=== PATIENT | male | born 1970 | race Hispanic/Latino ===

== ENCOUNTER 2020-02-20 20:32 | Emergency (ER) | payer OTHER | END 2020-02-20 21:20 | disposition home or self-care (01) | LOC: EDH 20:32 | DX: U07.1 COVID-19 (principal); J20.8 Acute bronchitis due to other specified organisms | CPT/HCPCS: 36415; 99283; U0003 ==

== ENCOUNTER 2020-02-23 13:19 | Inpatient (IN) | payer OTHER, SELFPAY ==
[~2020-02-23] VITALS: Ht 175.3 cm; Wt 91.9 kg
[2020-02-23] MEDS ORDERED: CEFTRIAXONE SODIUM 2 GM VIAL ONE (13:58)
[2020-02-23] MEDS ORDERED: METHYLPREDNISOLONE SOD SUCC 40MG/ML 1ML ONE ×2 (13:58→21:12)
[2020-02-23] MEDS ORDERED: SODIUM CHLORIDE 0.9% 100 ML IV ONE (13:59)
[2020-02-23 14:02] LABS: BASOPHILS % (AUTO) 0.2 % (0.0-5.0); EOSINOPHILS % (AUTO) 0.1 % (0.0-8.0); HEMATOCRIT 43.3 % (42-54); LYMPHOCYTES % (AUTO) 9.1 % (21.0-51.0); MEAN CORPUSCULAR HEMOGLOBIN 32.8 pg (27.0-33.0); MEAN CORPUSCULAR HGB CONC 34.9 g/dL (32.0-36.0); MEAN CORPUSCULAR VOLUME 93.9 fL (79-99); MONOCYTES % (AUTO) 4.8 % (3.0-13.0); NEUTROPHILS % (AUTO) 84.6 % (40.0-77.0); PLATELET COUNT (AUTO) 230 K/uL (130-400); RED BLOOD CELL COUNT(AUTO) 4.61 MIL/uL (4.50-6.20); RED CELL DISTRIBUTION WIDTH 11.6 % (11.0-15.5); WHITE BLOOD COUNT (AUTO) 10.3 K/uL (4.8-10.8)
[2020-02-23 14:11] LABS: CARBON DIOXIDE 32 mmol/L (21-32); CHLORIDE 101 mmol/L (101-111); CREATININE 1.3 mg/dL (0.5-1.5); GLOMERULAR FILTR. RATE CALC 63 mL/min (>60); GLUCOSE,RANDOM 115 mg/dL (70-105); POTASSIUM 3.9 mmol/L (3.5-5.1); SODIUM SERUM 140 mmol/L (136-145); UREA NITROGEN, BLOOD 22 mg/dL (7-18)
[2020-02-23 14:13] LABS: INR 0.92 (0.85-1.15); PARTIAL THROMBOPLASTIN TIME 28.4 SEC (26.3-35.5)
[2020-02-23 14:16] LABS: ABG BASE EXCESS 1.5 mmol/L (-2.0-3.0); ABG HCO3 25.7 mmol/L (21.0-28.0); ABG OXYGEN SATURATION 79.4 % (95.0-99.0); ABG PCO2 39 mmHg (35-48)
[2020-02-23 14:23] LABS: ALANINE AMINOTRANSFERASE 36 U/L (12-78); ALBUMIN 3.4 g/dL (3.5-5.0); ASPARTATE AMINOTRANSFERASE 42 U/L (10-37); BILIRUBIN,TOTAL 0.5 mg/dL (0.2-1.0); CREATINE KINASE, TOTAL 186 U/L (21-232); MYOGLOBIN 66 ng/mL (10-92); TOTAL PROTEIN, SERUM 8.3 g/dL (6.0-8.3); TROPONIN I < 0.04 ng/mL (0.00-0.06)
[2020-02-23] MEDS: CEFTRIAXONE SODIUM 1 GM IVP SCH (15:15)
[2020-02-23] MEDS ORDERED: LACTULOSE 20 GM/30 ML UDCUP PO PRN (15:15)
[2020-02-23] MEDS ORDERED: ACETAMINOPHEN 325 MG TAB PO PRN ×2 (15:15)
[2020-02-23] MEDS ORDERED: ONDANSETRON HCL 4 MG/2 ML VIAL IV PRN (15:15)
[2020-02-23] MEDS ORDERED: ERGOCALCIFEROL (VITAMIN D2) 50,000 UNIT CAPSULE PO ONE (15:15)
[2020-02-23 16:24] LABS: APPEARANCE,URINE Clear (CLEAR); BILIRUBIN,URINE Negative (NEGATIVE); COLOR,URINE Dark Yellow (YELLOW); GLUCOSE, URINE (UA) Negative (NEGATIVE); KETONES,URINE Negative (NEGATIVE); LEUKOCYTE ESTERASE ,URINE Negative (NEGATIVE); NITRATE,URINE Negative (NEGATIVE); OCCULT BLOOD,URINE Negative (NEGATIVE); PH,URINE 5.5 (5.0-8.0); PROTEIN,URINE POS 1+ mg/dL (NEGATIVE)
[2020-02-23 16:33] LABS: RBC,URINE 0-1 /HPF (0-1)
[2020-02-23 16:34] LABS: BACTERIA,URINE Few /HPF (None Seen); MUCUS,URINE Few LPF (None Seen); SQUAMOUS EPITHELIAL CELL,UR Few /HPF (0-2)
[2020-02-23] MEDS ORDERED: ERGOCALCIFEROL (VITAMIN D2) 50,000 UNIT CAPSULE ONE (16:41)
[2020-02-23] MEDS ORDERED: IOHEXOL-350 75 ML VIAL IV ONE (18:48)
[2020-02-23] MEDS: FAMOTIDINE 20MG TAB 20 MG TAB PO SCH (21:00)
[2020-02-23] MEDS: ACETYLCYSTEINE 600 MG CAPSULE PO SCH (21:00)
[2020-02-23] MEDS: METHYLPREDNISOLONE SOD SUCC 40MG/ML 1ML IVP SCH (21:00)
[2020-02-23] MEDS: DOXYCYCLINE HYCLATE 100 MG TABLET PO SCH (21:00)
[2020-02-23] MEDS ORDERED: DOXYCYCLINE HYCLATE 100 MG TABLET PO ONE (21:13)
[2020-02-23] MEDS ORDERED: FAMOTIDINE 20MG TAB 20 MG TAB ONE (21:13)
[2020-02-24] MEDS: CEFTRIAXONE SODIUM 1 GM IVP SCH ×2 (03:15→15:15)
[2020-02-24 06:01] LABS: CRP QUANTITATIVE 50.6 mg/L (0.00-9.0)
[2020-02-24] MEDS ORDERED: ASCORBIC ACID 500 MG TAB ONE (08:06)
[2020-02-24] MEDS ORDERED: DOXYCYCLINE HYCLATE 100 MG TABLET PO ONE (08:06)
[2020-02-24] MEDS ORDERED: METHYLPREDNISOLONE SOD SUCC 40MG/ML 1ML ONE (08:06)
[2020-02-24] MEDS ORDERED: FAMOTIDINE 20MG TAB 20 MG TAB ONE (08:06)
[2020-02-24] MEDS ORDERED: ACETYLCYSTEINE 600 MG CAPSULE ONE (08:07)
[2020-02-24] MEDS ORDERED: ZINC SULFATE 220 CAPSULE ONE (08:07)
[2020-02-24] MEDS ORDERED: CEFTRIAXONE SODIUM 1 GM ONE (08:07)
[2020-02-24] MEDS ORDERED: ENOXAPARIN SODIUM 40 MG/0.4 ML SYRINGE SQ ONE (08:07)
[2020-02-24] MEDS: ENOXAPARIN SODIUM 40 MG/0.4 ML SYRINGE SQ SCH (09:00)
[2020-02-24] MEDS: FAMOTIDINE 20MG TAB 20 MG TAB PO SCH ×2 (09:00→20:43)
[2020-02-24] MEDS: METHYLPREDNISOLONE SOD SUCC 40MG/ML 1ML IVP SCH ×3 (09:00→21:14)
[2020-02-24] MEDS: DOXYCYCLINE HYCLATE 100 MG TABLET PO SCH ×2 (09:00→20:43)
[2020-02-24] MEDS: ASCORBIC ACID 500 MG TAB PO SCH (09:00)
[2020-02-24] MEDS: ACETYLCYSTEINE 600 MG CAPSULE PO SCH ×2 (09:00→20:43)
[2020-02-24] MEDS: ZINC SULFATE 220 CAPSULE PO SCH (12:00)
[2020-02-24] MEDS ORDERED: SODIUM CHLORIDE 0.9% 100 ML IV ONE (15:27)
--- NOTE | 2020-02-24 18:00 | NUR ---
Pt alert, came from ER with a NRB sat at 95%, pt showed no signs and symptoms of distress, A&Ox4, no skin issues, bed at lowest position, BSC at bedside, Vitals WNL, pt stated no pain
[2020-02-24 18:14] VITALS: BP 129/85
--- NOTE | 2020-02-24 18:47 | NUR ---
Pt alert, Zita discharge [place] Islander speaking pt, pt agreed to self isolate and follow-up with primary care provider in 3-4 weeks, pt understood discharge instructions, pt was weaned off 1L oxygen, room air sat of 96, walking without oxygen pt sat was 92-94%, MD Ovalle notified, DC order was placed, pt showed no signs and symptoms of distress,
[2020-02-24 20:00] VITALS: BP 142/93
--- NOTE | 2020-02-24 20:43 | NUR ---
MEDS SHIFT ASSESSMENT DONE, PLEASE REFER TO CHART. STILL CLAIMS OF SOB WITH EXERTION AND DRY COUGH. MAINTAINED ON 100% NON-REBREATHER FOR NOW. DUE MEDS ADMINISTERED, TOLERATED WELL. CALL LIGHT WITHIN REACH. WILL MONITOR PT. Addendum: 02/25/20 at 0000 by LILLIANA WASHINGTON RN RN Amended: Links added.
[2020-02-25 00:16] VITALS: BP 12/66
[2020-02-25] MEDS: CEFTRIAXONE SODIUM 1 GM IVP SCH ×3 (02:28→20:55)
--- NOTE | 2020-02-25 02:28 | NUR ---
MEDS PT STILL AWAKE AND CLAIMS OF INABILITY TO SLEEP. DUE MEDS ADMINISTERED, TOLERATED WELL. KEPT COMFORTABLE IN BED WITH HOB ELEVATED. KEPT ROOM TEMPERATURE COOL AND LIGHTS DIMMED. ENCOURAGED TO TRY TO RELAX. WILL MONITOR PT. CALL LIGHT WITHIN REACH.
[2020-02-25 04:23] VITALS: BP 116/66
[2020-02-25 04:51] LABS: BASOPHILS % (AUTO) 0.2 % (0.0-5.0); HEMATOCRIT 38.4 % (42-54); LYMPHOCYTES % (AUTO) 4.3 % (21.0-51.0); MEAN CORPUSCULAR HEMOGLOBIN 32.4 pg (27.0-33.0); MEAN CORPUSCULAR HGB CONC 34.4 g/dL (32.0-36.0); MEAN CORPUSCULAR VOLUME 94.1 fL (79-99); MONOCYTES % (AUTO) 3.5 % (3.0-13.0); NEUTROPHILS % (AUTO) 90.8 % (40.0-77.0); PLATELET COUNT (AUTO) 242 K/uL (130-400); RED BLOOD CELL COUNT(AUTO) 4.08 MIL/uL (4.50-6.20); RED CELL DISTRIBUTION WIDTH 11.4 % (11.0-15.5); WHITE BLOOD COUNT (AUTO) 13.1 K/uL (4.8-10.8)
[2020-02-25 05:04] LABS: CREATININE 1.3 mg/dL (0.5-1.5); CRP QUANTITATIVE 28.1 mg/L (0.00-9.0)
--- NOTE | 2020-02-25 06:20 | NUR ---
ROUNDS PT RESTING WELL. NO DISTRESS NOTED. NO CONCERNS VERBALIZED AT THIS TIME. KEPT RESTED AND COMFORTABLE. FOR MORE CARE.
[2020-02-25 08:00] VITALS: BP 134/80
[2020-02-25] MEDS ORDERED: POTASSIUM CHLORIDE 10% ELIXIR 20 MEQ/15 ML UDCUP PO PRN (10:00)
[2020-02-25] MEDS ORDERED: POTASSIUM CHLORIDE 20MEQ/100ML 100 ML IV PRN ×2 (10:00)
[2020-02-25] MEDS ORDERED: POTASSIUM CHLORIDE 20 MEQ ERTAB PO PRN (10:00)
[2020-02-25] MEDS: METHYLPREDNISOLONE SOD SUCC 40MG/ML 1ML IVP SCH ×3 (10:17→20:55)
[2020-02-25] MEDS: FAMOTIDINE 20MG TAB 20 MG TAB PO SCH ×2 (10:17→20:56)
[2020-02-25] MEDS: ASCORBIC ACID 500 MG TAB PO SCH (10:17)
[2020-02-25] MEDS: ACETYLCYSTEINE 600 MG CAPSULE PO SCH ×2 (10:17→20:56)
[2020-02-25] MEDS: DOXYCYCLINE HYCLATE 100 MG TABLET PO SCH ×2 (10:17→20:56)
[2020-02-25] MEDS: ENOXAPARIN SODIUM 40 MG/0.4 ML SYRINGE SQ SCH (10:18)
[2020-02-25] MEDS: ZINC SULFATE 220 CAPSULE PO SCH (11:28)
--- NOTE | 2020-02-25 11:45 | NUR ---
CONSENT FORM FOR CONVALESCENT PLASMA COMPLETED AND SIGNED BY PATIENT AND GIVEN TO CN TO TAKE TO LAB; WILL AWAIT FOR PLASMA TO BE AVAILABLE . PT LELIA UNDECIDED ABOUT WHETHER OR NOT TO RECEIVE PLASMA; I HAVE GIVEN HIM THE INFORMATION HAND OUT ON IT AND ANSWERED ALL HIS QUESTIONS; HE ATTEMPTED TO CALL HIS AND ASK HER OPINION ON RECEIVING IT BUT SHE DID NOT ANSWER PHONE; I DID TELL HIM THE PLASMA WOULD PROBABLY NOT BE AVAILABLE TILL TOMORROW SO IF THE CHANGES HIS MIND ON RECEIVING IT TO LET US KNOW IF HE DOES NOT WANT IT.
[2020-02-25 12:00] VITALS: BP 123/76
[2020-02-25 16:00] VITALS: BP 131/63
--- NOTE | 2020-02-25 18:08 | NUR ---
SHIFT SUMMARY: PT HAD SAT'S OF 98% ON NON REBREATHER SO I DECREASED HIM TO PARTIAL NON -BREATHER 15L 70% OXYGEN AND HE SATS 92%; PT SIT'S ON EDGE OF BED FREQUENTLY, AND LAYS PRONE AT TIMES IN BED; HE IS PENDING TO RECEIVE A UNIT OF CONVALESCANT PLASMA.
[2020-02-25 19:00] VITALS: BP 119/79
[2020-02-26] VITALS (7 sets, daily range): BP systolic 123–144; BP diastolic 74–93
[2020-02-26] MEDS ORDERED: SODIUM CHLORIDE 0.9% 250 ML IV ONE (03:42)
[2020-02-26 04:35] LABS: BASOPHILS % (AUTO) 0.1 % (0.0-5.0); HEMATOCRIT 39.7 % (42-54); LYMPHOCYTES % (AUTO) 5.2 % (21.0-51.0); MEAN CORPUSCULAR HEMOGLOBIN 32.1 pg (27.0-33.0); MEAN CORPUSCULAR HGB CONC 34.3 g/dL (32.0-36.0); MEAN CORPUSCULAR VOLUME 93.6 fL (79-99); MONOCYTES % (AUTO) 4.9 % (3.0-13.0); NEUTROPHILS % (AUTO) 88.4 % (40.0-77.0); PLATELET COUNT (AUTO) 283 K/uL (130-400); RED BLOOD CELL COUNT(AUTO) 4.24 MIL/uL (4.50-6.20); RED CELL DISTRIBUTION WIDTH 11.5 % (11.0-15.5); WHITE BLOOD COUNT (AUTO) 11.1 K/uL (4.8-10.8)
[2020-02-26 04:56] LABS: ALBUMIN 2.6 g/dL (3.5-5.0); BILIRUBIN,TOTAL 0.3 mg/dL (0.2-1.0); CREATININE 1.3 mg/dL (0.5-1.5); POTASSIUM 4.5 mmol/L (3.5-5.1); TOTAL PROTEIN, SERUM 7.1 g/dL (6.0-8.3)
--- NOTE | 2020-02-26 06:33 | NUR ---
plasma patient received 1 unit of convalescent plasma and tolerated well
[2020-02-26] MEDS: FAMOTIDINE 20MG TAB 20 MG TAB PO SCH ×2 (08:51→21:14)
[2020-02-26] MEDS: DOXYCYCLINE HYCLATE 100 MG TABLET PO SCH ×2 (08:51→21:13)
[2020-02-26] MEDS: ACETYLCYSTEINE 600 MG CAPSULE PO SCH ×2 (08:51→21:14)
[2020-02-26] MEDS: ENOXAPARIN SODIUM 40 MG/0.4 ML SYRINGE SQ SCH (08:51)
[2020-02-26] MEDS: ASCORBIC ACID 500 MG TAB PO SCH (08:51)
[2020-02-26] MEDS: CEFTRIAXONE SODIUM 1 GM IVP SCH ×2 (08:52→21:13)
[2020-02-26] MEDS: METHYLPREDNISOLONE SOD SUCC 40MG/ML 1ML IVP SCH ×3 (08:52→21:13)
[2020-02-26] MEDS: ZINC SULFATE 220 CAPSULE PO SCH (08:54)
--- NOTE | 2020-02-26 19:03 | NUR ---
[facility] CM unable to do IA at this time, called son on facesheet Ambrocio Reyes , left voice mail. Pending son to return call. Will reassess once pt more stable. CM to cont to follow up. Addendum: 02/26/20 at 1905 by RAJAT HOGAN LVN CM Amended: Links added.
[2020-02-27 03:50] VITALS: BP 125/84
[2020-02-27 05:40] LABS: BASOPHILS % (AUTO) 0.2 % (0.0-5.0); HEMATOCRIT 40.4 % (42-54); LYMPHOCYTES % (AUTO) 4.7 % (21.0-51.0); MEAN CORPUSCULAR HGB CONC 34.2 g/dL (32.0-36.0); MEAN CORPUSCULAR VOLUME 93.7 fL (79-99); MONOCYTES % (AUTO) 5.8 % (3.0-13.0); NEUTROPHILS % (AUTO) 86.5 % (40.0-77.0); PLATELET COUNT (AUTO) 293 K/uL (130-400); RED BLOOD CELL COUNT(AUTO) 4.31 MIL/uL (4.50-6.20); RED CELL DISTRIBUTION WIDTH 11.2 % (11.0-15.5); WHITE BLOOD COUNT (AUTO) 10.5 K/uL (4.8-10.8)
[2020-02-27 06:05] LABS: ALBUMIN 2.6 g/dL (3.5-5.0); BILIRUBIN,TOTAL 0.3 mg/dL (0.2-1.0); CREATININE 1.3 mg/dL (0.5-1.5); POTASSIUM 4.5 mmol/L (3.5-5.1); TOTAL PROTEIN, SERUM 6.8 g/dL (6.0-8.3)
[2020-02-27 08:00] VITALS: BP 117/95
[2020-02-27] MEDS: CEFTRIAXONE SODIUM 1 GM IVP SCH ×2 (08:23→21:28)
[2020-02-27] MEDS: ACETYLCYSTEINE 600 MG CAPSULE PO SCH ×2 (08:23→21:29)
[2020-02-27] MEDS: ASCORBIC ACID 500 MG TAB PO SCH (08:23)
[2020-02-27] MEDS: FAMOTIDINE 20MG TAB 20 MG TAB PO SCH ×2 (08:23→21:30)
[2020-02-27] MEDS: DOXYCYCLINE HYCLATE 100 MG TABLET PO SCH ×2 (08:23→21:29)
[2020-02-27] MEDS: ENOXAPARIN SODIUM 40 MG/0.4 ML SYRINGE SQ SCH (08:24)
[2020-02-27] MEDS: METHYLPREDNISOLONE SOD SUCC 40MG/ML 1ML IVP SCH ×3 (08:24→21:40)
[2020-02-27 11:00] VITALS: BP 136/83
[2020-02-27] MEDS: ZINC SULFATE 220 CAPSULE PO SCH (12:50)
[2020-02-27 16:00] VITALS: BP 122/79
[2020-02-27 20:00] VITALS: BP 133/82
[2020-02-27 23:53] VITALS: BP 128/83
[2020-02-28 04:00] VITALS: BP 133/84
[2020-02-28 04:22] LABS: BASOPHILS % (AUTO) 0.2 % (0.0-5.0); HEMATOCRIT 41.7 % (42-54); MEAN CORPUSCULAR HGB CONC 34.3 g/dL (32.0-36.0); MEAN CORPUSCULAR VOLUME 93.3 fL (79-99); MONOCYTES % (AUTO) 5.2 % (3.0-13.0); NEUTROPHILS % (AUTO) 87.8 % (40.0-77.0); PLATELET COUNT (AUTO) 292 K/uL (130-400); RED BLOOD CELL COUNT(AUTO) 4.47 MIL/uL (4.50-6.20); RED CELL DISTRIBUTION WIDTH 11.2 % (11.0-15.5); WHITE BLOOD COUNT (AUTO) 9.8 K/uL (4.8-10.8)
[2020-02-28 04:31] LABS: ALBUMIN 2.6 g/dL (3.5-5.0); BILIRUBIN,TOTAL 0.5 mg/dL (0.2-1.0); CREATININE 1.2 mg/dL (0.5-1.5); POTASSIUM 4.6 mmol/L (3.5-5.1); TOTAL PROTEIN, SERUM 6.9 g/dL (6.0-8.3)
[2020-02-28 08:48] VITALS: BP 114/74
[2020-02-28] MEDS: ASCORBIC ACID 500 MG TAB PO SCH (10:28)
[2020-02-28] MEDS: FAMOTIDINE 20MG TAB 20 MG TAB PO SCH ×2 (10:28→21:19)
[2020-02-28] MEDS: ACETYLCYSTEINE 600 MG CAPSULE PO SCH ×2 (10:29→21:19)
[2020-02-28] MEDS: DOXYCYCLINE HYCLATE 100 MG TABLET PO SCH ×2 (10:29→21:18)
[2020-02-28] MEDS: ENOXAPARIN SODIUM 40 MG/0.4 ML SYRINGE SQ SCH (10:29)
[2020-02-28] MEDS: METHYLPREDNISOLONE SOD SUCC 40MG/ML 1ML IVP SCH ×3 (10:29→21:18)
[2020-02-28] MEDS: CEFTRIAXONE SODIUM 1 GM IVP SCH ×2 (10:32→21:18)
[2020-02-28 11:00] VITALS: BP 117/83
[2020-02-28 15:00] VITALS: BP 113/81
[2020-02-28] MEDS: ZINC SULFATE 220 CAPSULE PO SCH (16:37)
[2020-02-28 21:53] VITALS: BP 125/55
[2020-02-29 00:48] VITALS: BP 138/94
[2020-02-29 04:17] VITALS: BP 132/75
[2020-02-29 05:34] LABS: BASOPHILS % (AUTO) 0.2 % (0.0-5.0); LYMPHOCYTES % (AUTO) 4.3 % (21.0-51.0); MEAN CORPUSCULAR HEMOGLOBIN 31.5 pg (27.0-33.0); MEAN CORPUSCULAR HGB CONC 33.9 g/dL (32.0-36.0); MONOCYTES % (AUTO) 4.2 % (3.0-13.0); NEUTROPHILS % (AUTO) 87.2 % (40.0-77.0); PLATELET COUNT (AUTO) 289 K/uL (130-400); RED BLOOD CELL COUNT(AUTO) 4.41 MIL/uL (4.50-6.20); RED CELL DISTRIBUTION WIDTH 11.4 % (11.0-15.5); WHITE BLOOD COUNT (AUTO) 8.7 K/uL (4.8-10.8)
[2020-02-29 05:39] LABS: CARBON DIOXIDE 28 mmol/L (21-32); CHLORIDE 104 mmol/L (101-111); CREATININE 1.2 mg/dL (0.5-1.5); GLOMERULAR FILTR. RATE CALC 69 mL/min (>60); GLUCOSE,RANDOM 182 mg/dL (70-105); POTASSIUM 4.8 mmol/L (3.5-5.1); SODIUM SERUM 137 mmol/L (136-145); UREA NITROGEN, BLOOD 32 mg/dL (7-18)
[2020-02-29 08:00] VITALS: BP 124/86
[2020-02-29] MEDS: ACETYLCYSTEINE 600 MG CAPSULE PO SCH ×2 (08:52→19:49)
[2020-02-29] MEDS: DOXYCYCLINE HYCLATE 100 MG TABLET PO SCH ×2 (08:52→19:49)
[2020-02-29] MEDS: FAMOTIDINE 20MG TAB 20 MG TAB PO SCH ×2 (08:52→19:49)
[2020-02-29] MEDS: METHYLPREDNISOLONE SOD SUCC 40MG/ML 1ML IVP SCH ×3 (08:52→19:49)
[2020-02-29] MEDS: ASCORBIC ACID 500 MG TAB PO SCH ×2 (08:52→19:49)
[2020-02-29] MEDS: CEFTRIAXONE SODIUM 1 GM IVP SCH ×2 (08:52→19:49)
[2020-02-29] MEDS: ENOXAPARIN SODIUM 40 MG/0.4 ML SYRINGE SQ SCH ×2 (08:55→19:50)
--- NOTE | 2020-02-29 09:33 | NUR ---
dag sprayer heart rate in the 30's. Telemetry called and reported patient's heart rate was in the 30's. Entered his room and he was asleep. Aroused without a problem. LAWN AND GARDEN TECHNICIAN was in to take V/S and heart rate was at 46. I assessed and went to bring morning medications to patient and he was sitting up on side of bed, color good, no SOB or distress noted. Retook HR=76, at this time. He stated that he just needed to get to moving and letting the circulation start. He also asked about if he would be seeing a doctor soon because he wanted to talk more about his prognosis and improvements. I did tell him that I will jasen a note of his request and will also let first shift nurse know when she arrives.
--- NOTE | 2020-02-29 09:52 | NUR ---
VALE Philip NP visited patient VALE Philip NP came to floor and I notified him about patient's request to see him for talk about discharge plans. Patient was seen and an order was put in for Respiratory Therapy to assess for home oxygen on 02/27/2020. A call was placed to Respiratory and they will see patient today. Patient also had his nonrebreather mask removed, by VALE Lafleur NP, to assess tolerance. Will follow up with a oxygen saturation level.
[2020-02-29] MEDS: ZINC SULFATE 220 CAPSULE PO SCH (11:55)
[2020-02-29 12:00] VITALS: BP 115/79
[2020-02-29 16:00] VITALS: BP 133/87
--- NOTE | 2020-02-29 19:27 | NUR ---
UNABLE TO ASSESS SW attempted to reach patient's family but was unsuccessful.
[2020-02-29 20:50] VITALS: BP 120/76
[2020-03-01 04:57] LABS: BASOPHILS % (AUTO) 0.2 % (0.0-5.0); HEMATOCRIT 43.9 % (42-54); LYMPHOCYTES % (AUTO) 4.4 % (21.0-51.0); MEAN CORPUSCULAR HEMOGLOBIN 32.5 pg (27.0-33.0); MEAN CORPUSCULAR HGB CONC 34.9 g/dL (32.0-36.0); MEAN CORPUSCULAR VOLUME 93.2 fL (79-99); MONOCYTES % (AUTO) 4.6 % (3.0-13.0); PLATELET COUNT (AUTO) 280 K/uL (130-400); RED BLOOD CELL COUNT(AUTO) 4.71 MIL/uL (4.50-6.20); RED CELL DISTRIBUTION WIDTH 11.3 % (11.0-15.5); WHITE BLOOD COUNT (AUTO) 9.3 K/uL (4.8-10.8)
[2020-03-01 05:30] LABS: CREATININE 1.1 mg/dL (0.5-1.5); CRP QUANTITATIVE 4.1 mg/L (0.00-9.0); POTASSIUM 4.8 mmol/L (3.5-5.1)
[2020-03-01 05:36] VITALS: BP 113/74
[2020-03-01 08:00] VITALS: BP 125/89
[2020-03-01] MEDS: DOXYCYCLINE HYCLATE 100 MG TABLET PO SCH (08:37)
[2020-03-01] MEDS: CEFTRIAXONE SODIUM 1 GM IVP SCH (08:37)
[2020-03-01] MEDS: FAMOTIDINE 20MG TAB 20 MG TAB PO SCH ×2 (08:37→19:57)
[2020-03-01] MEDS: ACETYLCYSTEINE 600 MG CAPSULE PO SCH ×2 (08:37→19:56)
[2020-03-01] MEDS: METHYLPREDNISOLONE SOD SUCC 40MG/ML 1ML IVP SCH ×3 (08:37→19:57)
[2020-03-01] MEDS: ZINC SULFATE 220 CAPSULE PO SCH (11:47)
[2020-03-01 12:00] VITALS: BP 130/71
--- NOTE | 2020-03-01 12:19 | NUR ---
IA- D/C PLANNING W PT- HOME WITH O2/CONCENTRATOR FROM [facility]. SPOKE TO PATIENT ON PHONE FOR IA. STATES HIS PHONE WAS DROPPED AND HAS TROUBLE RECEIVING CALLS, STATES LIVES WITH BRIE HIS FATHER, IS , CONFIRMED NUMBERS ON HIS FACE SHEET. STATES HE WAS LAID OFF FROM HIS JOB SECOND TO A WORK INJURY ON HIS FOOT- [facility] BUT WAS UNABLE TO AFFORD TO CONTINUE HIS INSURANCE. FOOT IS BETTER NOW- HE IS MOBILE & INDEPENDENT, DRIVES, NO DME. NO KNOWLEDGE OF ANY COMMUNITY RESOURCES- ADVISED HIM THAT WE WILL GIVE COMMUNITY RESOURCE PKG AND LEAVE IN CHART FOR DISCHARGE. SPOKE TO HIM ABOUT TRANSPORT TANK AND CONCENTRATOR FOR HOME. GOAL IS 3 LITRE. POSS D/C TODAY, ALREADY DISCUSSED GOAL WITH VALE MCKEON AND WITH JONNY RANGEL RN Addendum: 03/01/20 at 1230 by RUMA LIND RN CM Amended: Links added.
--- NOTE | 2020-03-01 12:53 | NUR ---
Cedrick COLLAZO, AYESHA, visited patient and placed him on a nasal cannula at 2 Liters per minute. His saturation after 20 minutes was 84-86%. His liters was increased to 4 liters per minute. After 30 minutes his oxygen saturation level=90%. The litigation assistant, Beata called and wanted me to give patient her phone number, since she could not reach him, and have him to call her in regards to discharge preparation. She did report that she had oxygen concentrators that was given by the state, so if patient required oxygen she could send home oxygen. He needs to be at 3 liters with a saturation of 90-91% to be able to be sent home with it. I will try to wean to 3 liters, but if his saturation level drop, I will increase back to 4 liters, until an improvement to try again.
--- NOTE | 2020-03-01 13:26 | NUR ---
Placed on 3 liters via nasal cannula Patient was placed on 3 liters via nasal cannula and oxygen saturation=88%. Some SOB noted, so increased back to 4 liters. Will continue to monitorand let 3pm nurse know to continue as well to see if can be weaned to 3 liters, successfully without and s/sx of SOB.
--- NOTE | 2020-03-01 14:19 | NUR ---
Oxygen Saturation Check I entered the patient's room and took oxygen saturation, while he was on 5 liters via nasal cannula and it =88-89%. Respiratory therapy was on the floor and I made aware about trying to wean patient and what Cedrick COLLAZO NP placed him on (2 liters via nasal cannula) this morning. Patient is now on 5 liters via nasal cannula, after oxygen saturation level wasat 88% on 4 liters. Respiratory therapist agreed to take up to 5 liters via nasal cannula.
--- NOTE | 2020-03-01 15:24 | NUR ---
RDSCREEN - LOS X 7 Pt admitted with positive COVID-19, ARF. Pt with regular diet order. No report of GI distress. Recent PO intake at 100%, called RN, unavailable. BG 187, Alb 2.6. Obesity class I. No pertinent medical history. Pt with Vitamin C, Zinc, NAC in place. Recommend 60mL ProMod QD RD to continue to monitor. Please notify as additional nutrition concerns arise. Thank you.
[2020-03-01 16:00] VITALS: BP 144/97
[2020-03-01 19:30] VITALS: BP 123/78
--- NOTE | 2020-03-01 22:17 | NUR ---
Pt was sitting in chair on side of his bed, pt stated he felt better, pt is now on nasal cannula 5L satuation at 90%,will bring oxygen to 6L, pt showed no signs and symptoms of distress, stated no pain, will continue to monitor pt
[2020-03-02] VITALS: BP 118/78
[2020-03-02 04:00] VITALS: BP 121/73
[2020-03-02 08:00] VITALS: BP 141/84
[2020-03-02] MEDS: METHYLPREDNISOLONE SOD SUCC 40MG/ML 1ML IVP SCH ×3 (08:57→21:11)
[2020-03-02] MEDS: ACETYLCYSTEINE 600 MG CAPSULE PO SCH ×2 (08:57→21:11)
[2020-03-02] MEDS: FAMOTIDINE 20MG TAB 20 MG TAB PO SCH ×2 (08:57→21:11)
[2020-03-02] MEDS: ASCORBIC ACID 500 MG TAB PO SCH (08:58)
[2020-03-02] MEDS: ENOXAPARIN SODIUM 40 MG/0.4 ML SYRINGE SQ SCH (08:58)
[2020-03-02 12:00] VITALS: BP 138/68
[2020-03-02] MEDS: ZINC SULFATE 220 CAPSULE PO SCH (12:11)
[2020-03-02 16:00] VITALS: BP 144/85
--- NOTE | 2020-03-02 17:07 | NUR ---
Pt alert, FINANCIAL SERVICES DIRECTOR AJ took weaned pt to 3L NC instead of 5L, pt oxygen saturation went from 91% to 87-88%, pt was placed back on 5L NC, pt showed no signs and symptoms of distress, stated no pain, will continue to monitor pt
[2020-03-02 19:30] VITALS: BP 133/81
[2020-03-03] VITALS: BP 126/79
--- NOTE | 2020-03-03 00:05 | NUR ---
Oxygen Saturation Checks lying, sitting, and walking without oxygen Patient was lying in bed ad I took oxygen saturation=93%, sitting oxygen saturation=90-91%, and walking in room without any oxygen=82-83%. He is currently on 4 liters via nasal cannula. No other s/sx of distress noted at this time. He asked for a snack and was given a turkey sandwich, juice and carrots.
[2020-03-03 04:00] VITALS: BP 114/74
[2020-03-03] MEDS: ACETYLCYSTEINE 600 MG CAPSULE PO SCH (07:58)
[2020-03-03] MEDS: METHYLPREDNISOLONE SOD SUCC 40MG/ML 1ML IVP SCH ×2 (07:58→15:08)
[2020-03-03] MEDS: FAMOTIDINE 20MG TAB 20 MG TAB PO SCH (07:58)
[2020-03-03] MEDS: ENOXAPARIN SODIUM 40 MG/0.4 ML SYRINGE SQ SCH (07:59)
[2020-03-03 08:00] VITALS: BP 109/69
[2020-03-03] MEDS: ASCORBIC ACID 500 MG TAB PO SCH (08:00)
--- NOTE | 2020-03-03 12:05 | NUR ---
Oxygen evaluation done by Respiratory Therapist Evelyn Rivas stated pt failed home O2 evaluation, without oxygen walking around pt o2 level was 81%, pt called demanding go home today, METAL SMELTER VALE spoke with pt explaining if oxygen level after the evaluation is above 89% pt could go home, pt is on NC 4L, pt is alert, showed no signs and symptoms of distress, will continue to monitor pt
[2020-03-03 12:46] VITALS: BP 121/76
[2020-03-03] MEDS: ZINC SULFATE 220 CAPSULE PO SCH (15:10)
[2020-03-03] MEDS ORDERED: ASPI-1005 PO (15:25)
[2020-03-03] MEDS ORDERED: ALBU0.63 IH (15:25)
[2020-03-03] MEDS ORDERED: DEXA6TAB PO (15:25)
--- NOTE | 2020-03-03 16:38 | NUR ---
DC HOME WITH OUR OXYGEN- OXYGEN LENDING FORM FILLED OUT PATIENT ALREADY HAS A FINGER OXYGEN SATURATION MONITOR PAPER WORK DONE, COPY TO PATIENT, COPY TO LOG Addendum: 03/03/20 at 1639 by RUMA LIND RN CM Amended: Links added.
--- NOTE | 2020-03-03 17:14 | NUR ---
Pt is discharge, pt signed discharge papers, pt stated he will self isolate for 14 days at home, pt is taking o2 home with him on 4L of oxygen, pt is going home with hospital concentrator and tank until his insurance send his own, nurse outreach case manager Gil is taking care of getting pt oxygen tank and concentrator back.. pt is A&Ox4, showed no signs and symptoms of distress, VS WNL, and pt is ready to go, called earlier and spoke with EDGER TAILER VALE about her leaving the hospital today in a pushing nasty way, pt agreed and was ready to go home,
== END 2020-03-03 15:19 | disposition home or self-care (01) | DRG 177 ==
LOC: EDH 13:19 → EDHIP 13:20 → 4DH 02-24 17:41
PROVIDERS: ADMIT Hospitalist; ATTEND Hospitalist
PROC: 30233K1 Transfusion of Nonautologous Frozen Plasma into Peripheral Vein, Percutaneous Approach (ICD-10-PCS; principal; 2020-02-26)
DX: U07.1 COVID-19 (principal); J12.89 Other viral pneumonia; J96.01 Acute respiratory failure with hypoxia; E11.9 Type 2 diabetes mellitus without complications; I10 Essential (primary) hypertension
CPT/HCPCS: 36415; 36430; 36600; 71045; 71275; 80048; 80053; 81001; 82550; 82728; 82803; 82948; 83605; 83615; 83874; 84145; 84484; 85025; 85378; 85610; 85730; 86140; 86900; 86901; 86927; 87040; 87088; 93005; 94760; 99291; G0378; J0696; J1650; J2920; J7050; Q9967